=== PATIENT | male | born 1960 | race Caucasian/White ===

== ENCOUNTER 2022-05-01 04:07 | Emergency (ER) | payer BC, SELFPAY ==
[2022-05-01 04:13] VITALS: BP 157/95; PULSE 90; RESP 18; TEMP 37; O2SAT 100
--- NOTE | 2022-05-01 04:43 | ED.EXTPRO ---
HPI - Extremity Problem General Chief complaint: Extremity Problem,Nontraumatic Stated complaint: left leg r/o dvt Time Seen by Provider: 05/01/22 04:20 History of Present Illness HPI Narrative: This is a 61-year-old male with past medical history of eczema, who presents the emergency department with a tender rash on the left foreleg for the past 40 hours . He states he had a rash consistent with eczema at that site, he scratched it and then noticed rapid development of pain, swelling and redness at the site. He states his initial pain was rated 9 out of 10, that then decreased to 1 out of 10 today. He complains of intermittent chills but denies fevers, vomiting or difficulty breathing. Related Data Allergies Allergy/AdvReac Type Severity Reaction Status Date / Time No Known Allergies Allergy Verified 05/01/22 04:44 Review of Systems Review of Systems: CONSTITUTIONAL: Chills denies fever, or sweats. EYES: Denies visual changes, redness, or discharge. ENT: Denies rhinorrhea, congestion, sore throat, or otalgia. CARDIOVASCULAR: Denies chest pain, palpitations, or edema. RESPIRATORY: Denies cough or dyspnea. GASTROINTESTINAL: Denies abdominal pain, nausea, vomiting, or diarrhea. GENITOURINARY: Denies dysuria or hematuria. SKIN: Rash on left foreleg denies itching. MUSCULOSKELETAL: Denies back pain, joint pain, or myalgia. NEUROLOGIC: Denies headache, numbness, dizziness, or weakness. PSYCHIATRIC: Denies anxiety or depression. PMFSH Past Medical History Medical History (Updated 05/01/22 @ 04:48 by Logan Flores MD) Eczema Surgical History Surgical History (Updated 05/01/22 @ 04:48 by Logan Flores MD) No pertinent past surgical history Social History Social History (Updated 05/01/22 @ 04:48 by Logan Flores MD) Smoking status: Never smoker Alcohol intake: never Substance use: never Exam Narrative: GENERAL: Well-appearing, well-nourished, and in no acute distress. HEAD: Normocephalic, atraumatic. EYES: PERRLA and EOMI. CHEST: Clear to auscultation. No respiratory distress. No wheezes rales or rhonchi HEART: Regular rate and rhythm. No murmur heard. Normal peripheral pulses. ABDOMEN: Soft, nontender, nondistended, normal active bowel sounds. EXTREMITIES: Normal range of motion. No edema. SKIN: A well demarcated area of erythema is noted over the medial aspect of the left distal foreleg with a well demarcated border. There are no noted vesicles, no crepitus, purulent drainage or swelling; skin otherwise warm and dry NEURO: No focal deficits. Alert and oriented x3. PSYCH: Normal mood and affect. Course Course Emergency Course: 04:45 - Consistent with cellulitis. Will give initial dose of antibiotics here and discharged with Keflex and recommendation to follow-up with a primary care provider. Discussed return emergent precautions including signs/symptoms of antibiotic failure and necrotizing fasciitis. The patient voiced understanding and is comfortable with the plan. All questions answered to his satisfaction. Vital Signs Vital signs: Vital Signs Temperature 98.6 F 05/01/22 04:13 Pulse Rate 90 05/01/22 04:13 Respiratory Rate 18 05/01/22 04:13 Blood Pressure 157/95 H 05/01/22 04:13 Pulse Oximetry 100 05/01/22 04:13 Oxygen Delivery Room Air 05/01/22 04:13 Temperature 98.6 F 05/01/22 04:13 Pulse Rate 90 05/01/22 04:13 Respiratory Rate 18 05/01/22 04:13 Blood Pressure 157/95 H 05/01/22 04:13 Pulse Oximetry 100 05/01/22 04:13 Oxygen Delivery Room Air 05/01/22 04:13 MDM - Extremity (Nontraumatic) MDM Narrative Medical decision making narrative: Plan: Antibiotics and primary care follow-up Differential Diagnosis Differential diagnosis: Likely cellulitis and other Discharge Plan Discharge Clinical Impression: Cellulitis Patient Disposition: Home, Self-Care Condition: Stable Instructions: Antibiotic Form, Cellulitis (ED)
== END 2022-05-01 05:00 | disposition home or self-care (01) ==
PROVIDERS: Emergency Provider Preventive Medicine Aerospace Medicine
DX: L03.116 Cellulitis of left lower limb (principal)
CPT/HCPCS: 99283

== ENCOUNTER 2022-05-07 09:24 | Emergency (ER) | payer BC, SELFPAY ==
--- NOTE | 2022-05-07 09:29 | ED.GENADULT ---
HPI - General Adult General Chief complaint: Skin/Abscess/Foreign Body Stated complaint: cellulitis Time Seen by Provider: 05/07/22 09:33 Source: patient Mode of arrival: ambulatory Limitations: no limitations History of Present Illness HPI narrative: 61 y/o male with history of eczema presented for re-evaluation of existing wound to left lower leg. He was seen in the ER 05/01/22 (6 days ago) for the complaint of a 'tender rash' that started as eczema at this site. States it became painful, red, and swollen prompting his ER visit. He was prescribed cephalexin, and reports compliance. He was advised to f/u with pcp and go back to the ER if no improvement upon completion of the antibiotic. He states it is better, but since it is not completely healed, he wanted evaluation. Patient provided a photo for comparison. Denies numbness, tingling or weakness of the extremity. Endorses walking 3 miles without difficulty. Denies cp, palpitations or sob. Denies significant pain or swelling. Related Data Allergies Allergy/AdvReac Type Severity Reaction Status Date / Time No Known Allergies Allergy Verified 05/07/22 09:34 Review of Systems Review of Systems: CONSTITUTIONAL: Denies body aches, fever, chills, or sweats. EYES: Denies visual changes, redness, or discharge. ENT: Denies rhinorrhea, congestion CARDIOVASCULAR: Denies chest pain, palpitations, or edema. RESPIRATORY: Denies cough or dyspnea. GASTROINTESTINAL: Denies abdominal pain, nausea, vomiting, or diarrhea. SKIN: per HPI MUSCULOSKELETAL: Denies back pain, joint pain, or myalgia. NEUROLOGIC: Denies headache, numbness, tingling, or weakness. [facility] Past Medical History Medical History Eczema Surgical History Surgical History No pertinent past surgical history Social History Social History Smoking status: Never smoker Alcohol intake: never Substance use: never Comments At time of signature, I have reviewed and agree with nursing past medical, surgical, social and family history unless otherwise noted. Please see nursing chart for further information. There is no relevant family history pertinent to the presenting complaint Exam Narrative: GENERAL: Well-appearing HEAD: Normocephalic, atraumatic. EYES: conjunctivae clear, and EOMI. ENT: Mucous membranes moist NECK: Supple. No lymphadenopathy CHEST: Clear to auscultation. HEART: Regular rate and rhythm. SKIN: Warm, dry. Left lower leg anterior and medial aspects with mild erythema, not circumferential; trace swelling medially without pitting, minimally tender; posterior leg with 4x2.5cm dark reddened area, nontender, no open areas. Pedal pulses palpable +2. NEURO: Alert and oriented x3. Course Course Emergency Course: Patient is aware of diagnosis, understands and agrees to treatment plan. Anticipatory guidance given. Patient agrees to follow-up as directed and is aware of reasons to seek care at the emergency department. Portions of this record may have been created with voice recognition software Level of Care: Express Care Visit Vital Signs Vital signs: Vital Signs Temperature 98.4 F 05/07/22 09:30 Pulse Rate 94 05/07/22 09:30 Respiratory Rate 20 05/07/22 09:30 Blood Pressure 137/99 H 05/07/22 09:30 Pulse Oximetry 99 05/07/22 09:30 Oxygen Delivery Room Air 05/07/22 09:30 Temperature 98.4 F 05/07/22 09:30 Pulse Rate 94 05/07/22 09:30 Respiratory Rate 20 05/07/22 09:30 Blood Pressure 137/99 H 05/07/22 09:30 Pulse Oximetry 99 05/07/22 09:30 Oxygen Delivery Room Air 05/07/22 09:30 Reviewed Medical Decision Making MDM Narrative Medical decision making narrative: Patient presented for c/o left lower leg redness, after completing cephalexin for treatment of cellulitis. Suspec
[2022-05-07 09:30] VITALS: BP 137/99; PULSE 94; RESP 20; TEMP 36.9; O2SAT 99
== END 2022-05-07 10:02 | disposition home or self-care (01) ==
PROVIDERS: Emergency Provider Nurse Practitioner Family
DX: L03.116 Cellulitis of left lower limb (principal)
CPT/HCPCS: 99213; G0463

== ENCOUNTER 2022-05-18 09:26 | Outpatient (CLI) | payer BC, SELFPAY ==
[2022-05-18 09:58] LABS: Basophils Absolute Auto 0.1 K/mm3 (0.0-0.1); Basophils Percent Auto 0.8 % (0.2-1.2); Eosinophils Absolute Auto 0.1 K/mm3 (0-0.3); Eosinophils Percent Auto 0.8 % (0-4.4); Hematocrit 46.1 % (42.0-52.0); Hemoglobin 15.9 g/dL (14.0-18.0); Immature Granulocyte Absolute 0.05 K/mm3 (0.00-0.031); Immature Granulocyte Percent A 0.8 % (0-0.5); Lymphocytes Absolute Auto 2.13 K/mm3 (0.9-3.2); Lymphocytes Percent Auto 35.6 % (18.3-44.2); Mean Corpuscular HGB Conc 34.5 g/dl (32-36); Mean Corpuscular Hemoglobin 31.3 pg (26-34); Mean Corpuscular Volume 90.7 fl (80-100); Mean Platelet Volume 9.6 fl (7.4-10.4); Monocytes Absolute Auto 0.6 K/mm3 (0.1-0.6); Monocytes Percent Auto 9.4 % (2.6-8.5); Neutrophils Absolute Auto 3.1 K/mm3 (1.3-6.7); Neutrophils Percent Auto 52.6 % (45.5-73.1); Platelet Count Result 273 k/mm3 (150-375); Red Blood Count 5.08 M/mm3 (4.6-6.20); Red Cell Distribution Width 12.6 % (11.5-14.5)
[2022-05-18 10:10] LABS: Alanine Aminotransferase 17 U/L (6-50); Albumin Level 4.4 g/dL (3.5-5.1); Alkaline Phosphatase 50 U/L (38-126); Anion Gap 5 mmol/L (8-16); Aspartate Amino Transferase 23 U/L (17-59); Blood Urea Nitrogen 11 mg/dL (9-20); Calcium 8.7 mg/dL (8.4-10.2); Carbon Dioxide 29 mmol/L (22-30); Chloride 104 mmol/L (98-107); Cholesterol 229 mg/dL (0-200); Estimated Glomerular Filt Rate > 60; Glucose 108 mg/dL (65-110); HDL Direct 58 mg/dL; Sodium 138 mmol/L (137-145); Triglycerides 119 mg/dL (<150)
[2022-05-18 10:21] LABS: LDL Cholesterol Direct 126 mg/dL
[2022-05-18 10:47] LABS: Hemoglobin A1C 5.4 % (<5.7)
[2022-05-24 04:27] LABS: HIV DNA PCR (Qual) Not Detected (Not Detected)
[2022-05-26 14:02] LABS: PSA, Free 0.74 ng/mL; PSA, Total 2.4 ng/mL (<=4.0)
== END 2022-05-18 09:27 | disposition home or self-care (01) ==
PROVIDERS: PCP Family Medicine; Visit Provider Family Medicine
DX: N40.1 Benign prostatic hyperplasia with lower urinary tract symptoms (principal); Z00.00 Encounter for general adult medical examination without abnormal findings; Z11.3 Encounter for screening for infections with a predominantly sexual mode of transmission
CPT/HCPCS: 36415; 80053; 80061; 83036; 84153; 84154; 85025; 87535

== ENCOUNTER 2022-07-05 08:45 | Outpatient (CLI) | payer BC, SELFPAY ==
[2022-07-05 09:38] LABS: Alanine Aminotransferase 43 U/L (6-50); Aspartate Amino Transferase 66 U/L (17-59)
== END 2022-07-05 08:46 | disposition home or self-care (01) ==
LOC: ANHLAB 08:46
PROVIDERS: PCP Family Medicine; Visit Provider Nurse Practitioner Gerontology
DX: Z79.899 Other long term (current) drug therapy (principal)
CPT/HCPCS: 36415; 84450; 84460

== ENCOUNTER 2022-07-30 09:33 | Outpatient (CLI) | payer BC, SELFPAY ==
[2022-07-30 11:44] LABS: Alanine Aminotransferase 22 U/L (6-50); Aspartate Amino Transferase 35 U/L (17-59)
== END 2022-07-30 09:34 | disposition home or self-care (01) ==
LOC: ANHLAB 09:34
PROVIDERS: PCP Family Medicine; Visit Provider Nurse Practitioner Gerontology
DX: R74.8 Abnormal levels of other serum enzymes (principal)
CPT/HCPCS: 36415; 84450; 84460

== ENCOUNTER 2023-01-15 09:58 | Outpatient (CLI) | payer BC, SELFPAY ==
[2023-01-15 10:39] LABS: Alanine Aminotransferase 27 U/L (6-50); Albumin Level 4.4 g/dL (3.5-5.1); Alkaline Phosphatase 45 U/L (38-126); Anion Gap 4 mmol/L (8-16); Aspartate Amino Transferase 31 U/L (17-59); Bilirubin,Total 0.8 mg/dL (0.2-1.3); Blood Urea Nitrogen 10 mg/dL (9-20); Carbon Dioxide 31 mmol/L (22-30); Chloride 99 mmol/L (98-107); Estimated Glomerular Filt Rate > 60; Glucose 94 mg/dL (65-110); Potassium 4.4 mmol/L (3.4-5.0); Sodium 134 mmol/L (137-145)
== END 2023-01-15 09:59 | disposition home or self-care (01) ==
LOC: ANHLAB 10:00
PROVIDERS: PCP Family Medicine; Visit Provider Physician Assistant
DX: I10 Essential (primary) hypertension (principal)
CPT/HCPCS: 36415; 80053

== ENCOUNTER 2023-04-26 08:54 | Outpatient (CLI) | payer BC, SELFPAY ==
--- NOTE | 2023-04-26 09:04 | EST_ITS ---
Patient Info Name: Maninder Orosco Age: 62 years : 1960 Gender: Male Ht: 76 in Wt: 220 lbs BSA: 2.32 m2 HR: 66 bpm BP: 166 / 99 mmHg Heart Rhythm: Sinus Rhythm Exam Date: 04/26/2023 9:45 AM Exam Location: Echo Lab Patient Status: Outpatient Admit Date: 04/26/2023 Staff Ordering Physician: Zuhair Rubin DO Attending Provider: Zuhair Rubin DO Exercise Technologist: Eliza Mills CT Exercise Physician: Zuhair Rubin DO Exam Type: CA stress test treadmill Study Info Indications R07.89 - Other chest pain A treadmill exercise stress test was performed. Summary 1. 1. Negative Robe exercise stress test for ischemic ST changes by ECG criteria. 2. 2. Reduced functional capacity, achieving 8.9 METs of workload. 3. 3. Baseline hypertension with hypertensive response to exercise. 4. 4. Appropriate HR response to exercise. 5. 5. Appropriate HR recovery at 1 minute post exercise. 6. 6. No imaging with stress testing. 7. 7. Patient informed of the above results. Protocol: Robe Stress ECG Details Stage: REST Duration (min): 21 min : 22 sec Speed (mph): 0.0 Grade (%): 0 HR (bpm): 61 SBP (mmHg): 166 DBP (mmHg): 99 METS: --- Stage: REST Duration (min): 21 min : 54 sec Speed (mph): 0.0 Grade (%): 0 HR (bpm): 60 SBP (mmHg): 166 DBP (mmHg): 99 METS: --- Stage: STAGE 1 Duration (min): 1 min : 0 sec Speed (mph): 1.7 Grade (%): 10 HR (bpm): 84 SBP (mmHg): 166 DBP (mmHg): 99 METS: --- Stage: STAGE 1 Duration (min): 2 min : 0 sec Speed (mph): 1.7 Grade (%): 10 HR (bpm): 91 SBP (mmHg): 166 DBP (mmHg): 99 METS: --- Stage: STAGE 1 Duration (min): 3 min : 0 sec Speed (mph): 1.7 Grade (%): 10 HR (bpm): 103 SBP (mmHg): 188 DBP (mmHg): 112 METS: --- Stage: STAGE 2 Duration (min): 1 min : 0 sec Speed (mph): 2.5 Grade (%): 12 HR (bpm): 119 SBP (mmHg): 188 DBP (mmHg): 112 METS: --- Stage: STAGE 2 Duration (min): 2 min : 0 sec Speed (mph): 2.5 Grade (%): 12 HR (bpm): 132 SBP (mmHg): 203 DBP (mmHg): 114 METS: --- Stage: STAGE 2 Duration (min): 3 min : 0 sec Speed (mph): 2.5 Grade (%): 12 HR (bpm): 137 SBP (mmHg): 203 DBP (mmHg): 114 METS: --- Stage: STAGE 3 Duration (min): 1 min : 0 sec Speed (mph): 3.4 Grade (%): 14 HR (bpm): 152 SBP (mmHg): 203 DBP (mmHg): 114 METS: --- Stage: STAGE 3 Duration (min): 1 min : 0 sec Speed (mph): 3.4 Grade (%): 14 HR (bpm): 152 SBP (mmHg): 203 DBP (mmHg): 114 METS: --- Stage: RECOVERY Duration (min): 0 min : 59 sec Speed (mph): 0.0 Grade (%): 0 HR (bpm): 127 SBP (mmHg): 203 DBP (mmHg): 114 METS: --- Stage: RECOVERY Duration (min): 1 min : 59 sec Speed (mph): 0.0 Grade (%): 0 HR (bpm): 102 SBP (mmHg): 213 DBP (mmHg): 118 METS: --- Stage: RECOVERY Duration (min): 2 min : 59 sec Speed (mph): 0.0 Grade (%
== END 2023-04-26 08:55 | disposition home or self-care (01) ==
PROVIDERS: PCP Family Medicine; Visit Provider Internal Medicine Cardiovascular Disease
DX: R07.9 Chest pain, unspecified (principal)
CPT/HCPCS: 93017

== ENCOUNTER 2024-11-24 08:42 | Outpatient (CLI) | payer BC, SELFPAY ==
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
[2024-11-24 10:02] LABS: Alanine Aminotransferase 20 U/L (6-50); Albumin Level 4.3 g/dL (3.5-5.1); Alkaline Phosphatase 42 U/L (38-126); Anion Gap 7 mmol/L (4-12); Aspartate Amino Transferase 34 U/L (17-59); Bilirubin,Total 1.5 mg/dL (0.2-1.3); Blood Urea Nitrogen 20 mg/dL (9-20); Calcium 9.4 mg/dL (8.4-10.2); Carbon Dioxide 28 mmol/L (22-30); Chloride 100 mmol/L (98-107); Cholesterol 233 mg/dL (0-200); Estimated Glomerular Filt Rate > 60; Glucose 100 mg/dL (65-110); HDL Direct 41 mg/dL; Potassium 4.0 mmol/L (3.4-5.0); Sodium 135 mmol/L (137-145); Total Protein 7.1 g/dL (6.3-8.2); Triglycerides 103 mg/dL (<150)
== END 2024-11-24 08:43 | disposition home or self-care (01) ==
PROVIDERS: Visit Provider Internal Medicine Cardiovascular Disease
DX: E78.5 Hyperlipidemia, unspecified (principal)
CPT/HCPCS: 36415; 80053; 80061